=== PATIENT | female | born 1980 | race African-American/Black ===

== ENCOUNTER 2017-09-06 08:56 | Inpatient (IN) | payer OTHER ==
[~2017-09-06] VITALS: Ht 162.5 cm; Wt 65.5 kg
--- NOTE | ~2017-09-06 | EKG ---
[place], [place] ELECTROCARDIOGRAM REPORT NAME: HELDER LEWIS UNIT #: [id number] ROOM: 422 DOCTOR: JOSE EDUARDO DRAFT REPORT BIRTHDATE: [birth year] [facility] Test Date: 2017-09-06 Test Time: 14:08:24 Pat Name: HELDER LEWIS Department: Room: 422 1 Gender: F [employer] Assistant: [id number] : 1980 Requested By: CINDY MORRIS Order Number: [id number] Reading MD: Rocío Rodríguez MD Measurements Intervals [place] Rate: 62 P: 19 DC: 121 QRS: 47 QRSD: 84 T: 46 QT: 419 QTc: 426 Interpretive Statements Sinus rhythm Electronically Signed On 09-07-2017 11:11:32 PDT by Rocío Rodríguez MD CM:EKGRPT:ELECTROCARDIOGRAM REPORT [id number] CINDY RAMOS DRAFT REPORT CINDY MORRIS DO
[2017-09-06 10:42] VITALS: BP 122/64
[2017-09-06 10:44] VITALS: BP 122/64
[2017-09-06 11:23] LABS: BILIRUBIN NEGATIVE (NEGATIVE); BLOOD 3+ (NEGATIVE); CLARITY CLOUDY (CLEAR); GLUCOSE NEGATIVE (NEGATIVE); KETONE NEGATIVE (NEGATIVE); LEUKO ESTERASE TRACE (NEGATIVE); NITRITE NEGATIVE (NEGATIVE); SPECIFIC GRAVITY 1.015 (1.005-1.030); UROBILINOGEN 0.2 E.U./dl (0.2-1.0)
[2017-09-06 11:33] LABS: BASO % 0.4 % (0.0-1.0); EOS # 0.1 10*3/uL (0.0-0.4); EOS % 1.3 % (1.0-4.0); HEMATOCRIT 34.5 % (37.0-47.0); HEMOGLOBIN 10.3 g/dl (12.0-16.0); LYMPH # 1.4 10*3/uL (1.3-4.4); LYMPH % 24.3 % (27.0-41.0); MEAN CELL VOLUME 74.4 fl (81.0-99.0); MEAN CORPUSCULAR HGB 22.2 pg (27.0-31.0); MEAN CORPUSCULAR HGB CONC 29.9 g/dl (33.0-37.0); MEAN PLATELET VOLUME 9.8 fl (9.6-12.3); MONO # 0.3 10*3/uL (0.1-1.0); MONO % 5.5 % (3.0-9.0); NEUT # 3.8 10*3/uL (2.3-7.9); NEUT % 68.3 % (47.0-73.0); PLATELET COUNT AUTOMATED 223 10*3/uL (130-400); RED BLOOD COUNT 4.64 10*6/uL (4.10-5.10); WHITE BLOOD COUNT 5.6 10*3/uL (4.8-10.8)
[2017-09-06 11:37] LABS: BACTERIA 1+; COLOR RED (YELLOW); RBC TNTC rbc/hpf (0-2)
[2017-09-06] MEDS ORDERED: IBU-200200 M1 PO (11:41)
[2017-09-06 11:43] LABS: URINE AMPHETAMINES < 1000 (1000ng/ml); URINE BARBITURATES > 200 (200ng/ml); URINE BENZODIAZEPINES < 200 (200ng/ml); URINE CANNABINOIDS (THC) > 50 (50ng/ml); URINE COCAINE > 300 (300ng/ml); URINE METHADONE < 300 (300ng/ml); URINE OPIATES < 300 (300ng/ml)
[2017-09-06 11:48] LABS: URINE PHENCYCLIDINE < 25 (25ng/ml)
[2017-09-06 12:00] VITALS: BP 122/64
[2017-09-06 12:05] LABS: BETA-HCG, QUANT < 1.0 mIU/mL (1-3)
[2017-09-06 12:27] LABS: ETHYL ALCOHOL < 3.0 mg/dl (<3)
[2017-09-06 12:37] LABS: BUN 12 mg/dl (7-24); CHLORIDE 114 mmol/L (98-107); CREATININE 0.82 mg/dL (0.55-1.02); POTASSIUM 3.8 mmol/L (3.5-5.1); SODIUM 141 mmol/L (136-145)
[2017-09-06 12:51] LABS: ALBUMIN 3.2 gm/dl (3.1-4.5); SGPT/ALT 15 U/L (12-78); TOTAL PROTEIN 7.8 gm/dL (6.4-8.2)
[2017-09-06 13:04] LABS: ALKALINE PHOSPHATASE 84 U/L (45-117); SGOT/AST 10 IU/L (3-35)
[2017-09-06 16:00] VITALS: BP 136/79
[2017-09-06 20:00] VITALS: BP 116/61
[2017-09-07] VITALS: BP 101/70
[2017-09-07 08:00] VITALS: BP 84/48
[2017-09-07 09:31] LABS: ALBUMIN 2.9 gm/dl (3.1-4.5); ALKALINE PHOSPHATASE 84 U/L (45-117); BUN 10 mg/dl (7-24); CHLORIDE 117 mmol/L (98-107); CREATININE 0.95 mg/dL (0.55-1.02); POTASSIUM 3.5 mmol/L (3.5-5.1); SGOT/AST 13 IU/L (3-35); SGPT/ALT 7 U/L (12-78); SODIUM 144 mmol/L (136-145); TOTAL PROTEIN 7.2 gm/dL (6.4-8.2)
[2017-09-07 12:00] VITALS: BP 104/60
[2017-09-07 16:00] VITALS: BP 137/65
[2017-09-07 20:00] VITALS: BP 108/67
[2017-09-08] VITALS: BP 106/62
[2017-09-08 08:00] VITALS: BP 96/56
[2017-09-08 08:10] LABS: HEPATITIS B SURFACE AG Negative (Negative)
[2017-09-08 12:00] VITALS: BP 98/56
[2017-09-08 16:00] VITALS: BP 110/63
[2017-09-08 20:00] VITALS: BP 84/46
[2017-09-09] VITALS: BP 98/64
[2017-09-09 06:53] LABS: BASO % 0.6 % (0.0-1.0); EOS # 0.1 10*3/uL (0.0-0.4); EOS % 2.4 % (1.0-4.0); HEMATOCRIT 33.7 % (37.0-47.0); HEMOGLOBIN 10.3 g/dl (12.0-16.0); LYMPH % 39.4 % (27.0-41.0); MEAN CELL VOLUME 72.9 fl (81.0-99.0); MEAN CORPUSCULAR HGB 22.3 pg (27.0-31.0); MEAN CORPUSCULAR HGB CONC 30.6 g/dl (33.0-37.0); MEAN PLATELET VOLUME 9.8 fl (9.6-12.3); MONO # 0.3 10*3/uL (0.1-1.0); MONO % 6.8 % (3.0-9.0); NEUT # 2.5 10*3/uL (2.3-7.9); NEUT % 50.4 % (47.0-73.0); PLATELET COUNT AUTOMATED 249 10*3/uL (130-400); RED BLOOD COUNT 4.62 10*6/uL (4.10-5.10); RED CELL DISTRI WIDTH 21.3 % (0-14.5)
[2017-09-09 08:00] VITALS: BP 98/52
[2017-09-09] MEDS ORDERED: Sinemet 25 MG-100 MG PO (11:08)
[2017-09-09] MEDS ORDERED: ATARAX,VISTARIL50 MG PO (11:08)
[2017-09-12 14:23] LABS: HEPATITIS C VIRUS ANTIBODY >11.0 s/co (0.0-0.9)
== END 2017-09-09 12:00 | disposition home or self-care (01) | DRG 897 ==
LOC: 4E 08:56
PROVIDERS: Family Medicine; Internal Medicine; Internal Medicine Endocrinology, Diabetes & Metabolism
DX: F11.23 Opioid dependence with withdrawal (principal); E87.8 Other disorders of electrolyte and fluid balance, not elsewhere classified; D50.9 Iron deficiency anemia, unspecified; F12.10 Cannabis abuse, uncomplicated; D72.810 Lymphocytopenia; F13.10 Sedative, hypnotic or anxiolytic abuse, uncomplicated; F14.10 Cocaine abuse, uncomplicated; Z72.0 Tobacco use; Z71.6 Tobacco abuse counseling; Z80.3 Family history of malignant neoplasm of breast; Z88.1 Allergy status to other antibiotic agents; Z88.8 Allergy status to other drugs, medicaments and biological substances; Z79.1 Long term (current) use of non-steroidal anti-inflammatories (NSAID)